=== PATIENT | female | born 1990 | race Caucasian/White ===

== ENCOUNTER 2024-03-17 10:23 | Emergency (ER) | payer OTHER ==
[~2024-03-17] VITALS: Ht 152.4 cm; Wt 86.4 kg
[~2024-03-17 10:23] MED LIST: IBUP-1492 PO
[2024-03-17 10:35] VITALS: TEMP 98.6
[2024-03-17] MEDS ORDERED: CLON0.3T PO (10:35)
[2024-03-17] MEDS ORDERED: QUET100T34 PO (10:35)
[2024-03-17] MEDS ORDERED: CLON0.5T4 PO (10:35)
[2024-03-17] MEDS: AMOXICILLIN TRIHYDRATE 250 MG CAPSULE PO ONE (12:53)
[2024-03-17] MEDS: NEOMYCIN/POLYMYXIN B/HYDROCORT 10 ML OTIC SUSPENSION AD ONE (12:53)
[2024-03-17] MEDS ORDERED: AMOX500C2 PO (13:12)
[2024-03-17 13:17] VITALS: BP 118/65; PULSE 85; RESP 16; O2SAT 100
== END 2024-03-17 13:18 | disposition home or self-care (01) ==
LOC: EMS 10:23
DX: H66.91 Otitis media, unspecified, right ear (principal); H60.91 Unspecified otitis externa, right ear; Z79.899 Other long term (current) drug therapy
CPT/HCPCS: 99283

== ENCOUNTER 2024-03-20 14:09 | Emergency (ER) | payer OTHER ==
[~2024-03-20] VITALS: Ht 157.5 cm; Wt 86.4 kg
[~2024-03-20 14:09] MED LIST changes: +AMOX500C2 PO; +CLON0.3T PO; +CLON0.5T4 PO; -IBUP-1492 PO; +QUET100T34 PO
[2024-03-20 14:13] VITALS: TEMP 98.5
[2024-03-20 16:01] LABS: EOSINOPHILS % (AUTO) 1.2 % (1.0-6.0); HEMATOCRIT 44.1 % (36-46); HEMOGLOBIN 14.8 g/dL (12.0-16.0); LYMPHOCYTES # (AUTO) 3.3 K/uL (1.0-4.8); LYMPHOCYTES % (AUTO) 20.2 % (22.0-44.0); MEAN CORPUSCULAR HEMOGLOBIN 32.2 pg (26.0-34.0); MEAN CORPUSCULAR HGB CONC 33.6 G/dL (31.0-37.0); MEAN CORPUSCULAR VOLUME 96 fL (80-100); MONOCYTES % (AUTO) 0.3 % (2.0-9.0); NEUTROPHILS # (AUTO) 12.9 K/uL (1.8-7.7); NEUTROPHILS % (AUTO) 78.3 % (40.0-70.0); PLATELET COUNT (AUTO) 330 K/uL (150-450); RED CELL DISTRIBUTION WIDTH 13.5 % (11.5-14.5); WHITE BLOOD COUNT (AUTO) 16.5 K/uL (4.5-11.0)
[2024-03-20 16:12] LABS: ANION GAP 10 mmol/L (8-16); CALCIUM, TOTAL 9.1 mg/dL (8.8-10.5); CARBON DIOXIDE 24 mmol/L (22-29); CHLORIDE 101 mmol/L (98-107); CREATININE 1.19 mg/dL (0.60-1.30); GLOMERULAR FILTR. RATE CALC 52 mL/min (>60); GLUCOSE,RANDOM 96 mg/dL (70-110); POTASSIUM 4.1 mmol/L (3.5-5.1); SODIUM SERUM 135 mmol/L (136-145); UREA NITROGEN, BLOOD 10 mg/dL (7-18)
[2024-03-20] MEDS: PROCHLORPERAZINE EDISYLATE 5 MG/ML 2 ML VIAL IVP ONE (16:14)
[2024-03-20] MEDS: SODIUM CHLORIDE 0.9% 1,000 ML IV ONE (16:14)
[2024-03-20 16:18] LABS: ALANINE AMINOTRANSFERASE 46 U/L (12-78); ALBUMIN 3.5 g/dL (3.4-5.0); ALKALINE PHOSPHATASE 100 U/L (46-116); ASPARTATE AMINOTRANSFERASE 24 U/L (15-37); BILIRUBIN,TOTAL 0.5 mg/dL (0.1-1.0)
[2024-03-20 16:20] LABS: LACTIC ACID 1.6 mmol/L (0.4-2.0)
[2024-03-20 16:35] LABS: COVID AG,FIA SOURCE NASAL SWAB
[2024-03-20 16:53] LABS: SARS-COV2 (COVID) ANTIGEN,FIA Negative (Negative)
[2024-03-20 16:54] LABS: INFLUENZA TYPE A NEGATIVE FOR TYPE A (NEGATIVE); INFLUENZA TYPE B NEGATIVE FOR TYPE B (NEGATIVE)
[2024-03-20] MEDS: LORazepam 1 MG TABLET PO ONE (16:55)
[2024-03-20 17:20] LABS: APPEARANCE,URINE CLEAR (CLEAR); BILIRUBIN,URINE NEGATIVE (NEGATIVE); COLOR,URINE LIGHT YELLOW (YELLOW); GLUCOSE, URINE (UA) NEGATIVE (NEGATIVE); KETONES,URINE TRACE mg/dL (NEGATIVE); LEUKOCYTE ESTERASE ,URINE NEGATIVE (NEGATIVE); NITRATE,URINE NEGATIVE (NEGATIVE); OCCULT BLOOD,URINE NEGATIVE (NEGATIVE); PROTEIN,URINE NEGATIVE (NEGATIVE); SPECIFIC GRAVITIY, URINE 1.013 (1.003-1.030); UROBILINOGEN,URINE <=1.0 mg/dL (<=1.0)
[2024-03-20 17:24] LABS: AMPHET/METH SCREEN,URINE NEGATIVE (NEGATIVE); BARBITURATE SCREEN, URINE NEGATIVE (NEGATIVE); BENZODIAZEPINES SCREEN,URINE NEGATIVE (NEGATIVE); CANNABINOID SCREEN,URINE NEGATIVE (NEGATIVE); COCAINE SCREEN,URINE NEGATIVE (NEGATIVE); METHADONE SCREEN, URINE NEGATIVE (NEGATIVE); OPIATE SCREEN,URINE NEGATIVE (NEGATIVE); PHENCYCLIDINE SCREEN,URINE NEGATIVE (NEGATIVE)
[2024-03-20] MEDS ORDERED: IOHEXOL 300 MG/ML 100 ML VIAL ONE (17:24)
[2024-03-20] MEDS ORDERED: 0.9% SODIUM CHLORIDE 10 ML SYRINGE IVP ONE (17:24)
[2024-03-20 17:28] LABS: ALCOHOL, URINE DRUG SCREEN NEGATIVE (NEGATIVE)
[2024-03-20] MEDS: AMPICILLIN SODIUM/SULBACTAM NA 3 GM in SODIUM CHLORIDE 0.9% 100 ML IV ONE (17:38)
[2024-03-20] MEDS ORDERED: AMOX-457 PO (18:20)
[2024-03-20 18:26] VITALS: BP 137/77; PULSE 110; RESP 18; O2SAT 99
[2024-03-20] MEDS: QUEtiapine FUMARATE 100 MG TABLET PO ONE (18:26)
[2024-03-20] MEDS ORDERED: OXYC-38 PO (18:39)
[2024-03-20] MEDS ORDERED: OFLO5DRO4 AU (18:43)
== END 2024-03-20 18:59 | disposition home or self-care (01) ==
LOC: EMS 14:11
DX: H60.93 Unspecified otitis externa, bilateral (principal); D72.829 Elevated white blood cell count, unspecified; G43.909 Migraine, unspecified, not intractable, without status migrainosus; Z79.899 Other long term (current) drug therapy; Z20.822 Contact with and (suspected) exposure to COVID-19
CPT/HCPCS: 99285; 70450; 96365; 71045; 96361; 96375; 87426; 80048; 80076; 81003; 83605; 84703; 85025; 87040; 87804; 36415; 70487; 93005; 80307; J0780; J0295; J7030; J7050; Q9967